=== PATIENT | male | born 1970 | race Caucasian/White ===

== ENCOUNTER 2017-08-06 12:41 | Day surgery (SDC) | payer MEDICAID ==
[2017-08-06] VITALS (9 sets, daily range): BP systolic 127–144; BP diastolic 66–87
[~2017-08-06] VITALS: Ht 198.1 cm; Wt 163.4 kg
[2017-08-06] MEDS ORDERED: LIDOcaine 1%/PF (10mg/ml) 5ml vial IJ ONE (12:42)
[2017-08-06] MEDS ORDERED: normal saline 1000ml 1,000 ML IV SCH (13:05)
[2017-08-06] MEDS ORDERED: ACYC-202 PO (13:51)
[2017-08-06] MEDS ORDERED: ACET-812 PO (13:51)
[2017-08-06] MEDS ORDERED: LISI40TA4 PO (13:51)
[2017-08-06] MEDS ORDERED: ASPI81TA52 PO (13:51)
[2017-08-06] MEDS ORDERED: TRAM50TA2 PO (13:51)
[2017-08-06] MEDS ORDERED: ATOR40TA71 PO (13:51)
[2017-08-06] MEDS ORDERED: OMEP40CA37 PO (13:51)
[2017-08-06] MEDS ORDERED: TOPI100T18 PO (13:51)
[2017-08-06] MEDS ORDERED: LEVO50TA PO (13:51)
[2017-08-06] MEDS ORDERED: LIDOcaine 1%/PF (10mg/ml) 5ml vial ONE (14:44)
== END 2017-08-06 15:30 | disposition home or self-care (01) ==
LOC: SSTAY O 12:41
PROVIDERS: ATTEND Internal Medicine Interventional Cardiology
DX: R55 Syncope and collapse (principal); G47.33 Obstructive sleep apnea (adult) (pediatric); I10 Essential (primary) hypertension; E11.9 Type 2 diabetes mellitus without complications; E03.9 Hypothyroidism, unspecified; K21.9 Gastro-esophageal reflux disease without esophagitis; E78.5 Hyperlipidemia, unspecified; Z88.6 Allergy status to analgesic agent; Z87.891 Personal history of nicotine dependence; Z98.890 Other specified postprocedural states; Z72.89 Other problems related to lifestyle; Z79.82 Long term (current) use of aspirin; Z79.899 Other long term (current) drug therapy
CPT/HCPCS: 33282; 93005; A6449; C1764; J2001; J7030

== ENCOUNTER 2019-06-21 14:02 | Day surgery (SDC) | payer MEDICAID ==
[~2019-06-21] VITALS: Ht 198.1 cm; Wt 154.0 kg
[2019-06-21] VITALS (7 sets, daily range): BP systolic 116–155; BP diastolic 57–85
[~2019-06-21 14:02] MED LIST: ACET-812 PO; ACYC-202 PO; ASPI81TA52 PO; ATOR40TA71 PO; LEVO50TA PO; LISI40TA4 PO; OMEP40CA13 PO; TOP100T PO; TRAM50TA2 PO
[2019-06-21] MEDS ORDERED: normal saline 1000ml 1,000 ML IV SCH (14:25)
[2019-06-21] MEDS ORDERED: ceFAZolin/D5W- 1GM premix 50 ML IV ONE (14:25)
[2019-06-21] MEDS ORDERED: cefazolin/dext.iso 2gm/100ml 100 ML IV ONE (14:25)
[2019-06-21] MEDS ORDERED: APIX5TAB3 PO (14:47)
[2019-06-21] MEDS ORDERED: FLEC100T2 PO (14:47)
[2019-06-21] MEDS ORDERED: fentaNYL/PF 50MCG/1 ML 2ML syringe ONE ×2 (18:45→19:01)
[2019-06-21] MEDS ORDERED: midazolam 2 mg/2 ml injection ONE ×2 (18:45→18:58)
[2019-06-21] MEDS ORDERED: LIDOcaine 1% W/epiNEPHrine 1:100,000 20ml vial ONE (18:45)
[2019-06-21] MEDS ORDERED: ceFAZolin 1000mg inj ONE (18:52)
== END 2019-06-21 21:08 | disposition home or self-care (01) ==
LOC: SSTAY O 14:02
PROVIDERS: ATTEND Internal Medicine Interventional Cardiology
DX: I48.0 Paroxysmal atrial fibrillation (principal); G47.33 Obstructive sleep apnea (adult) (pediatric); E11.9 Type 2 diabetes mellitus without complications; I10 Essential (primary) hypertension; E03.9 Hypothyroidism, unspecified; K21.9 Gastro-esophageal reflux disease without esophagitis; Z79.899 Other long term (current) drug therapy; Z79.01 Long term (current) use of anticoagulants; Z95.5 Presence of coronary angioplasty implant and graft
CPT/HCPCS: 33208; 93005; 99152; 99153; C1785; C1898; J0690; J2250; J3010; J7030; A4565; A4620

== ENCOUNTER 2022-03-31 06:03 | Day surgery (SDC) | payer MEDICAID ==
[2022-03-24 15:08] LABS: BASOPHILS # (AUTO) 0.1 X10'3 (0-0.2); BASOPHILS % (AUTO) 0.9 % (0-1); EOSINOPHILS # (AUTO) 0.4 X10'3 (0-0.9); EOSINOPHILS % (AUTO) 4.7 % (0-6); LYMPHOCYTES # (AUTO) 2.6 X10'3 (1.1-4.8); LYMPHOCYTES % (AUTO) 28.6 % (21-51); MEAN CORPUSCULAR HEMOGLOBIN 31.9 PG (27.0-31.0); MONOCYTES # (AUTO) 0.6 X10'3 (0-0.9); NEUTROPHILS # (AUTO) 5.3 X10'3 (1.8-7.7); NEUTROPHILS % (AUTO) 58.8 % (42-75); PRE OP HEMATOCRIT 46.6 % (42.0-52.0); PRE OP HEMOGLOBIN 15.8 g/dL (14.0-17.9); PRE OP PLATELET COUNT 199 X10'3 (140-440); RED BLOOD COUNT 4.96 X10'6 (4.70-6.10); RED CELL DISTRIBUTION WIDTH 14.1 % (11.5-14.5)
[2022-03-24 15:21] LABS: ALBUMIN 3.9 G/DL (3.4-5.0); ALBUMIN/GLOBULIN RATIO 1.2 (1.1-1.5); ALKALINE PHOSPHATASE 90 IU/L (46-116); BLOOD UREA NITROGEN 13 MG/DL (7-18); BUN/CREATININE RATIO 14.8 (5.4-32.0); CALCIUM 8.8 MG/DL (8.5-10.1); CHLORIDE 109 MMOL/L (99-107); CREATININE 0.88 MG/DL (0.60-1.10); PRE OP ALT 28 U/L (30-65); PRE OP ANION GAP 11 (8-16); PRE OP AST 11 U/L (10-37); PRE OP BILIRUB, TOTAL 0.5 MG/DL (0.0-1.0); PRE OP GLUCOSE 97 MG/DL (70-104); PRE OP POTASSIUM 3.9 MMOL/L (3.4-5.1); PRE OP SODIUM 144 MMOL/L (135-145); TOTAL CARBON DIOXIDE 24.3 MMOL/L (24-32); TOTAL PROTEIN 7.1 G/DL (6.4-8.2); eGFR > 90 ML/MIN
[2022-03-31] VITALS (8 sets, daily range): BP systolic 98–139; BP diastolic 49–80
[~2022-03-31] VITALS: Ht 198.1 cm; Wt 167.0 kg
[~2022-03-31 06:03] MED LIST changes: -ACYC-202 PO; +APIX5TAB3 PO; -ASPI81TA52 PO; +DOCUMENT DATE & TIME OF BETA-BLOCKER PO ONE; +FLEC100T2 PO; +FLO0.4C PO; +LISI40TA13 PO; -LISI40TA4 PO; +METO50TA16 PO; -OMEP40CA13 PO; +OMEP40CA21 PO; -TRAM50TA2 PO; +ceFAZolin inj. 3,000 MG in normal saline 100ml IV soln 100 ML IV ONE; +famotidine 20mg tablet PO ONE; +ringers solution, lacted 1,000 ML IV SCH
[2022-03-31] MEDS ORDERED: BUPIVAcaine/PF 2.5 mg/ml (0.25%) 30ml vial ONE (06:39)
[2022-03-31] MEDS ORDERED: midazolam 1 mg/ML 2ml injection ONE (07:18)
[2022-03-31] MEDS ORDERED: fentaNYL/PF 50MCG/1 ML 2ML syringe ONE (07:18)
[2022-03-31] MEDS ORDERED: LIDOcaine 2% (20mg/ml) 5ml vial ONE (07:20)
[2022-03-31] MEDS ORDERED: propofol inj 20 ML IV ONE ×2 (07:20)
[2022-03-31] MEDS ORDERED: succinylcholine 20mg/ml inj IV ONE (07:20)
[2022-03-31] MEDS ORDERED: ROPIVAcaine 0.5% (5mg/ml) 30ml vial ONE (07:22)
[2022-03-31] MEDS ORDERED: morphine 2 MG/ML inj. syringe IV PRN (07:30)
[2022-03-31] MEDS ORDERED: hydrALAZINE 20mg/ml inj. IV PRN (07:30)
[2022-03-31] MEDS ORDERED: morphine 4 MG/ML inj SYRINge IV PRN (07:30)
[2022-03-31] MEDS ORDERED: ROPIVAcaine 0.2% (10 MG/5 ML) BOLUS INJECTION POPLITEAL PRN (07:30)
[2022-03-31] MEDS ORDERED: ROPIVAcaine 0.2%/PF PUMP/bolus 545 ML POPLITEAL SCH (07:30)
[2022-03-31] MEDS ORDERED: ROPIVAcaine 0.2% (10 MG/5 ML) BOLUS INJECTION INTERSCALE PRN (07:30)
[2022-03-31] MEDS ORDERED: ondansetron/PF 4mg/2ml inj IV PRN (07:30)
[2022-03-31] MEDS ORDERED: labetalol 20mg/4ml (5mg/ml) syringe IV PRN (07:30)
[2022-03-31] MEDS ORDERED: fentaNYL/PF 50MCG/1 ML 2ML syringe IV PRN ×2 (07:30)
[2022-03-31] MEDS ORDERED: ringers solution, lacted 1,000 ML IV SCH (07:30)
[2022-03-31] MEDS ORDERED: desflurane 240ml liquid inh. IH ONE (07:36)
[2022-03-31] MEDS ORDERED: dexamethasone sod phosphate 10mg/ml inj ONE (07:36)
[2022-03-31] MEDS ORDERED: ondansetron/PF 4mg/2ml inj ONE (08:10)
[2022-03-31] MEDS ORDERED: ePHEDrine 50MG/ML INJ. ONE (09:04)
--- NOTE | 2022-03-31 09:44 | NUR ---
Received from OR via [facility] IN STABLE CONDITION, accompanied by Anesthesiologist and GAMBLING FLOOR SUPERVISOR report given by GAMBLING FLOOR SUPERVISOR AND Anesthesiolgist. Addendum: 03/31/22 at 0959 by Lissa Mcmahon RN Amended: Links added.
[2022-03-31] MEDS ORDERED: HYDROcodone/acetaminophen 10/325mg tab PO PRN (09:45)
[2022-03-31] MEDS ORDERED: ROPIVAcaine 0.2%/PF PUMP/bolus 545 ML INTERSCALE SCH (10:12)
--- NOTE | 2022-03-31 10:54 | NUR ---
PATIENT DISCHARGED FROM THE PACU IN STABLE CONDITION AFTER WRITTEN AND VERBAL DISCHARGE INSTRUCTION GIVEN. PATIENT GAVE VERBAL UNDERSTANDING OF INSTRUCTIONS GIVEN. PATIENT LEFT FACILITY VIA WHEELCHAIR WITH RN AND PERSONAL BELONGINGS. Addendum: 03/31/22 at 1100 by Lissa Mcmahon RN Amended: Links added.
== END 2022-03-31 10:54 | disposition home or self-care (01) ==
LOC: PAS 06:03
PROVIDERS: ATTEND Orthopaedic Surgery
DX: M75.121 Complete rotator cuff tear or rupture of right shoulder, not specified as traumatic (principal); M75.41 Impingement syndrome of right shoulder; M19.019 Primary osteoarthritis, unspecified shoulder; G47.30 Sleep apnea, unspecified; I10 Essential (primary) hypertension; M75.51 Bursitis of right shoulder; G89.18 Other acute postprocedural pain; Z79.899 Other long term (current) drug therapy; Z98.890 Other specified postprocedural states; Z95.0 Presence of cardiac pacemaker; Z87.891 Personal history of nicotine dependence; E66.01 Morbid (severe) obesity due to excess calories
CPT/HCPCS: 29824; 29826; 29827; 36415; 64415; 76942; 80053; 82948; 85025; C1713; J0330; J0690; J1100; J2250; J2405; J2704; J2795; J3010; J3490; J7120; Z7506; Z7508; Z7512; A4565; A4618; A6449; A7000

== ENCOUNTER 2023-04-13 05:24 | Day surgery (SDC) | payer MEDICAID ==
[2023-04-09 15:28] LABS: BASOPHILS # (AUTO) 0.1 X10'3 (0-0.2); BASOPHILS % (AUTO) 0.9 % (0-1); EOSINOPHILS # (AUTO) 0.4 X10'3 (0-0.9); EOSINOPHILS % (AUTO) 3.8 % (0-6); LYMPHOCYTES # (AUTO) 2.7 X10'3 (1.1-4.8); LYMPHOCYTES % (AUTO) 27.8 % (21-51); MEAN CORPUSCULAR HEMOGLOBIN 31.8 PG (27.0-31.0); MEAN CORPUSCULAR HGB CONC 33.6 g/dL (33.0-36.5); MEAN CORPUSCULAR VOLUME 94.8 FL (78-98); MEAN PLATELET VOLUME 8.9 FL (7.4-10.4); MONOCYTES # (AUTO) 0.8 X10'3 (0-0.9); MONOCYTES % (AUTO) 8.1 % (2-12); NEUTROPHILS # (AUTO) 5.9 X10'3 (1.8-7.7); NEUTROPHILS % (AUTO) 59.4 % (42-75); PRE OP HEMATOCRIT 47.8 % (42.0-52.0); PRE OP PLATELET COUNT 234 X10'3 (140-440); PRE OP WHITE BLOOD COUNT 9.9 10'3 (4.8-10.8); RED BLOOD COUNT 5.04 X10'6 (4.70-6.10)
[2023-04-09 15:43] LABS: ALBUMIN/GLOBULIN RATIO 1.2 (1.1-1.5); ALKALINE PHOSPHATASE 93 IU/L (46-116); BLOOD UREA NITROGEN 12 MG/DL (7-18); BUN/CREATININE RATIO 13.2 (10.0-20.0); CALCIUM 9.2 MG/DL (8.5-10.1); CHLORIDE 107 MMOL/L (99-107); CREATININE 0.91 MG/DL (0.60-1.10); PRE OP ALT 33 U/L (30-65); PRE OP ANION GAP 12 (8-16); PRE OP AST 18 U/L (10-37); PRE OP BILIRUB, TOTAL 0.8 MG/DL (0.0-1.0); PRE OP GLUCOSE 91 MG/DL (70-104); PRE OP POTASSIUM 3.6 MMOL/L (3.4-5.1); PRE OP SODIUM 142 MMOL/L (135-145); TOTAL CARBON DIOXIDE 23.1 MMOL/L (24-32); TOTAL PROTEIN 7.4 G/DL (6.4-8.2); eGFR 87 ML/MIN
[~2023-04-13] VITALS: Ht 198.1 cm; Wt 158.5 kg
[2023-04-13] VITALS (9 sets, daily range): BP systolic 112–143; BP diastolic 48–82; PULSE 60–63; RESP 15–20; TEMP 97.5; O2SAT 96–100
[~2023-04-13 05:24] MED LIST changes: +ACYC-1 PO; +CLOT30CR24 TOP; +DICL20GE TOP; -DOCUMENT DATE & TIME OF BETA-BLOCKER PO ONE; +KEN0.1O TP; -ceFAZolin inj. 3,000 MG in normal saline 100ml IV soln 100 ML IV ONE; -famotidine 20mg tablet PO ONE
[2023-04-13] MEDS ORDERED: DOCUMENT DATE & TIME OF BETA-BLOCKER PO ONE (05:30)
[2023-04-13] MEDS ORDERED: famotidine 20mg tablet PO ONE (05:30)
[2023-04-13] MEDS ORDERED: ceFAZolin inj. 3,000 MG in normal saline 100ml IV soln 100 ML IV ONE (05:30)
[2023-04-13] MEDS ORDERED: BUPIVAcaine/PF 2.5mg/ml (0.25%) 10ml vial ONE (06:38)
[2023-04-13] MEDS ORDERED: midazolam 1 mg/ML 2ml injection ONE (07:13)
[2023-04-13] MEDS ORDERED: LIDOcaine 2% (20mg/ml) 5ml vial ONE (07:14)
[2023-04-13] MEDS ORDERED: propofol inj 20 ML IV ONE ×2 (07:14→07:16)
[2023-04-13] MEDS ORDERED: fentaNYL /PF 50mcg/ml 5ml ampule ONE (07:14)
[2023-04-13] MEDS ORDERED: ROPIVAcaine 0.5% (5mg/ml) 30ml vial ONE (07:14)
[2023-04-13] MEDS ORDERED: succinylcholine 20mg/ml inj IV ONE (07:14)
[2023-04-13] MEDS ORDERED: dexamethasone sod phosphate 4mg/ml inj. ONE (07:15)
[2023-04-13] MEDS ORDERED: sevoflurane 250ml liquid IH ONE (07:16)
[2023-04-13] MEDS ORDERED: acetaminophen 1,000mg/100ml IV 100 ML IV ONE (07:55)
[2023-04-13] MEDS ORDERED: ondansetron/PF 4mg/2ml inj ONE (07:55)
[2023-04-13] MEDS ORDERED: ePHEDrine 50MG/ML INJ. ONE (08:08)
[2023-04-13] MEDS ORDERED: ROPIVAcaine 0.2% (10 MG/5 ML) BOLUS INJECTION INTERSCALE PRN (08:15)
[2023-04-13] MEDS ORDERED: morphine 4 MG/ML inj SYRINge IV PRN (08:15)
[2023-04-13] MEDS ORDERED: ringers solution, lacted 1,000 ML IV SCH (08:15)
[2023-04-13] MEDS ORDERED: fentaNYL/PF 50MCG/1 ML 2ML syringe IV PRN ×2 (08:15)
[2023-04-13] MEDS ORDERED: morphine 2 MG/ML inj. syringe IV PRN (08:15)
[2023-04-13] MEDS ORDERED: hydrALAZINE 20mg/ml inj. IV PRN (08:15)
[2023-04-13] MEDS ORDERED: ondansetron/PF 4mg/2ml inj IV PRN (08:15)
[2023-04-13] MEDS ORDERED: ROPIVAcaine 0.2%/PF PUMP/bolus 545 ML INTERSCALE SCH (08:15)
[2023-04-13] MEDS ORDERED: enalaprilat dihydrate 2.5mg/2ml vial IV PRN (08:15)
--- NOTE | 2023-04-13 09:10 | NUR ---
Received from OR via [facility], accompanied by Anesthesiologist FRAN and report given by Anesthesiolgist. PT AWAKE BUT DROWSY. OXYGENATING WELL ON 8 LPM O2 VIA MASK, NO RESP DISTRESS NOTED. PRODUCTIVE COUGH, PT ABLE TO CLEAR SECRETIONS AND MANAGE AIRWAY. PT DENIES NAUSEA OR PAIN, HAD R INTERSCALENE BLOCK, CATHETER IN PLACE. ON Q WAS HOOKED UP, WENT OVER ITS USE WITH PT AND SHOWED HIM THAT THE CLAMP WAS OPEN, ALLOWING THE BLOCK TO WORK, HE VERBALIZED UNDERSTANDING. BULKY SHOULDER DRESSING CDI, SHOULDER WRAP IN PLACE. RUE IN SLING, ELBOW PADDED WITH PILLOW. DECREASED SENSATION RUE, RADIAL PULSE PALPABLE. CMS CHECK WNL. VSS.
[2023-04-13] MEDS ORDERED: HYDROcodone/acetaminophen 10/325mg tab PO PRN (09:40)
--- NOTE | 2023-04-13 10:40 | NUR ---
PT CONTINUES TO DENY PAIN THROUGHOUT PACU STAY, ONQ TEACHING WAS PERFORMED, ONQ DC INSTRUCTIONS INCLUDED. TOLERATING PO FLUIDS WELL. VSS. POWDER PACK PROVIDED, INSTRUCTED PT TO KEEP ELBOW PADDED UNTIL BLOCK IS OFF. DC INSTRUCTIONS EXPLAINED TO PT, HE VERBALIZED UNDERSTANDING. DCD IN STABLE CONDITION, TAKEN TO CAR VIA WC.
== END 2023-04-13 10:40 | disposition home or self-care (01) ==
LOC: PAS 05:24
PROVIDERS: ATTEND Orthopaedic Surgery
DX: M75.121 Complete rotator cuff tear or rupture of right shoulder, not specified as traumatic (principal); M75.51 Bursitis of right shoulder; M19.011 Primary osteoarthritis, right shoulder; I10 Essential (primary) hypertension; E03.9 Hypothyroidism, unspecified; K21.9 Gastro-esophageal reflux disease without esophagitis; G89.18 Other acute postprocedural pain; E66.01 Morbid (severe) obesity due to excess calories; Z68.39 Body mass index [BMI] 39.0-39.9, adult; Z95.0 Presence of cardiac pacemaker; Z98.890 Other specified postprocedural states; Z87.891 Personal history of nicotine dependence; Z79.899 Other long term (current) drug therapy
CPT/HCPCS: 29827; 36415; 64416; 80053; 82948; 85025; C1713; J0131; J0330; J0690; J1100; J2250; J2405; J2704; J2795; J3010; J3490; J7120; Z7506; Z7508; Z7512; A4565; A4618; A6253; A6449; A7000